=== PATIENT | female | born 1970 | race Caucasian/White ===

== ENCOUNTER 2018-01-26 10:36 | Day surgery (SDC) | payer MEDICARE, BC ==
[2018-01-22 16:09] VITALS: BMI 55.9
[~2018-01-26 10:36] MED LIST: DEXAMETHASONE SOD PHOSPHATE 10 MG/ML 1 ML VIAL IV ONE; MIDAZOLAM 2 MG/2 ML VIAL IV PRN; ONDANSETRON 4 MG/2 ML VIAL IVP ONE; Pre Op ABX Message 1 EACH MISC MISCELLANE ONE; SCOPOLAMINE 1.5MG/72HR PATCH TRANSDERM ONE; fentaNYL (PF) 50 MCG/ML 2 ML AMP IV PRN
[2018-01-26] MEDS ORDERED: LIDOCAINE 1% 20 ML VIAL (10MG/ML) FOR IV START INTRADERMA ONE (11:39)
[2018-01-26] MEDS: LACTATED RINGERS 1,000 ML IV SCH ×2 (11:39→12:16)
[2018-01-26 11:44] LABS: Glucose,Whole Blood 152 mg/dL (75-99)
[2018-01-26] MEDS ORDERED: SUCCINYLCHOLINE CHLORIDE 100 MG/5 ML SYR IV ONE (12:20)
[2018-01-26] MEDS ORDERED: PROPOFOL 10 MG/ML 20 ML VIAL IV ONE (12:20)
[2018-01-26] MEDS ORDERED: KETAMINE 10 MG/ML 20 ML VIAL ONE (12:20)
[2018-01-26] MEDS ORDERED: fentaNYL (PF) 50 MCG/ML 2 ML AMP ONE (12:20)
[2018-01-26] MEDS ORDERED: MIDAZOLAM 2 MG/2 ML VIAL ONE (12:20)
[2018-01-26] MEDS ORDERED: ceFAZolin 1,000 MG VIAL IVPB ONE (12:35)
[2018-01-26] MEDS ORDERED: ROPIVACAINE 5 MG/ML 30 ML VIAL MISCELLANE ONE ×3 (12:46→13:03)
[2018-01-26] MEDS ORDERED: LACTATED RINGERS 1,000 ML IV ONE (13:03)
[2018-01-26] MEDS ORDERED: HYDROmorphone 1 MG/ML 1 ML SYRINGE IVP PRN ×2 (13:14)
[2018-01-26] MEDS ORDERED: HYDROcodone/APAP 5-325MG 1 EACH TAB PO PRN ×2 (13:14)
[2018-01-26] MEDS ORDERED: LACTATED RINGERS 1,000 ML IV SCH (13:15)
[2018-01-26 13:26] VITALS: TEMP 97.4
[2018-01-26] MEDS ORDERED: KETOROLAC 30 MG/ML 1 ML VIAL IVP ONE (13:31)
--- NOTE | 2018-01-26 13:42 | P.OP ---
Date of Procedure: 01/26/18 Preoperative Diagnosis: 1. Left third webspace Duarte's neuroma 2. Morbid obesity with BMI of 55.9 3. History of DVT following surgery Postoperative Diagnosis: Same Procedure(s) Performed: 1. Left third webspace Duarte's neuroma excision Anesthesia: GETA Surgeon: Aayush Logan Estimated Blood Loss (ml): 25 IV fluids (ml): 650 Pathology: other (Neuroma sent to pathology) Condition: stable Disposition: PACU Indications for Procedure: The patient is a 47 erythe[age] with a medical history significant for having a BMI of 55.9. She previously had a second webspace neuroma excised by an outside provider and did well with this. She developed similar symptoms in the third webspace. She was seen by me in the office to discuss treatment options. Clinically her exam was consistent with a third webspace neuroma. We discussed nonoperative treatment with a webspace injection and a metatarsal pad versus surgery. The patient previously had surgery and did well she requested surgery. We discussed the potential risks and complications of surgery including but not limited to risk of anesthesia, risk of superficial infection, risk of delayed wound healing, risk of deep infection, risk of excision of non- nerve related tissue, risk of angular deformity of the toes, risk of ongoing pain, risk of worsening pain, risk of need for further surgery, risk of recurrent neuroma, risk of generalized to satisfaction with surgery, risk of DVT , risk of PE, risk of other medical complications, and possibly loss of life or limb. The patient voiced her understanding of the roll that her obesity plays in her foot symptoms and acknowledges that she may continue to have forefoot pain following surgery. Description of Procedure: The patient was identified in preoperative holding and the correct left leg was marked with my initials. I reviewed the consent form with the patient and her . All their questions were answered. The patient was then brought back to the operating room. She was positioned on the or table were general anesthetic and preoperative antibiotics were administered. A tourniquet was by the proximal aspect of the left leg. All bony prominences were well-padded. Prior to starting surgery timeout was performed identifying the correct patient , operative extremity, and procedure. The patient's leg was then elevated, exsanguinated with an Esmarch bandage, and the tourniquet was inflated to 250 mmHg. I began by outlining an incision directly over the dorsal aspect of the third webspace with a skin marker incision was made with a scalpel and dissection was carried down carefully to the subcutaneous tissue with tenotomy scissors. Crossing veins were controlled with electrocautery. The transverse metatarsal ligament was identified and a Mcdonough was placed beneath it. The transverse metatarsal ligament was then cut in its entirety. A small we Shaheedner retractor was placed between the metatarsal heads. The nerve was identified proximally and traced distally. There was swelling of the nerve in the webspace. The lumbrical tendon was identified and carefully retracted. The nerve was then cut proximally and distally. Proximally the stump was buried into the interosseous muscle. The neuroma was handed off to the back table and sent to pathology. The tourniquet was let down with a total tourniquet time of 21 minutes. All bleeders were controlled with electrocautery. The wound was then irrigated and closed in layers. 10 mL's of half percent Marcaine was injected around the incision. The patient had a sterile dressing consisting of Adaptic, 4 x 4, and web roll. A compressive Sal wrap was placed followed by postoperative shoe. The patient was then transferred [place] and brought to PACU having the procedure well. Plan: The patient is going to discharge home as an outpatient. She was given a copy of my postoperative instructions. She is going to be given Lovenox 40 mg daily for 2 weeks due to her history of DVT following elective surgery in the past. She was also strongly encouraged to ambulate help lower her risk.
[2018-01-26 13:56] VITALS: RESP 18
[2018-01-26] MEDS ORDERED: BUTALB/APAP/CAFF 50-325-40MG TAB PO STA (13:59)
[2018-01-26 14:38] VITALS: BP 119/63; PULSE 80
== END 2018-01-26 14:48 | disposition home or self-care (01) ==
LOC: OR 10:36
PROVIDERS: ATTEND Orthopaedic Surgery
DX: G57.62 Lesion of plantar nerve, left lower limb (principal); E66.01 Morbid (severe) obesity due to excess calories; Z68.43 Body mass index [BMI] 50.0-59.9, adult; Z86.718 Personal history of other venous thrombosis and embolism; F32.9 Major depressive disorder, single episode, unspecified; E11.9 Type 2 diabetes mellitus without complications; Z79.84 Long term (current) use of oral hypoglycemic drugs; G89.4 Chronic pain syndrome; J45.909 Unspecified asthma, uncomplicated; F19.982 Other psychoactive substance use, unspecified with psychoactive substance-induced sleep disorder; Z79.891 Long term (current) use of opiate analgesic; Z79.899 Other long term (current) drug therapy; Z79.52 Long term (current) use of systemic steroids; Z79.1 Long term (current) use of non-steroidal anti-inflammatories (NSAID); Z88.2 Allergy status to sulfonamides
CPT/HCPCS: 88304; 28080; J2250; J1100; J2405; J0690; J3010; J1885; J2795; J0330; J2704